=== PATIENT | female | born 1950 | race Two or more races ===

== ENCOUNTER 2019-10-19 16:09 | Emergency (ER) | payer BC, OTHER ==
[~2019-10-19] VITALS: Ht 152.4 cm; Wt 54.4 kg
[2019-10-19 16:12] VITALS: BP_SYST 125
--- NOTE | 2019-10-19 16:20 | NUR ---
Patient to ER bed 6 to gown for evaluation. Side rails up. Report given to Elizabeth RUBIO.
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
--- NOTE | 2019-10-19 16:30 | NUR ---
ER Dr. Flores at bedside examining patient.
[2019-10-19] MEDS ORDERED: HYDROcodone/ACETAMIN 7.5-325 MG TAB PO ONE (16:45)
--- NOTE | 2019-10-19 17:10 | NUR ---
XRAYS COMPLETE, AWAITING RESULTS.
--- NOTE | 2019-10-19 17:43 | NUR ---
REPORT TO JACOB RUBIO.
--- NOTE | 2019-10-19 18:10 | NUR ---
CALM, ALERT, RESP UNLABORED, SKIN WARM AND DRY. C-COLLOR INTACT, COMMUNICATES CLEARLY IN FULL COMPLETE SENTENCES.
--- NOTE | 2019-10-19 18:31 | NUR ---
UP AMBULATING TO BATHROOM. TOLERATING AMBULATION. PLACED BACK IN BED
--- NOTE | 2019-10-19 19:26 | NUR ---
Patient given written and verbal discharge instructions and verbalizes understanding. ER MD discussed with patient the results and treatment provided. Patient in stable condition. ID arm band removed. Rx of MOTRIN given. Patient educated on pain management and to follow up with PMD. Pain Scale 4/10. Opportunity for questions provided and answered. Medication side effect fact sheet provided.
[2019-10-19 19:27] VITALS: BP_SYST 131
== END 2019-10-19 19:27 | disposition home or self-care (01) ==
LOC: SED 16:09
DX: S13.4XXA Sprain of ligaments of cervical spine, initial encounter (principal); S50.12XA Contusion of left forearm, initial encounter; S80.02XA Contusion of left knee, initial encounter; E11.9 Type 2 diabetes mellitus without complications; V49.9XXA Car occupant (driver) (passenger) injured in unspecified traffic accident, initial encounter; Y93.89 Activity, other specified; Y92.411 Interstate highway as the place of occurrence of the external cause; Y99.8 Other external cause status
CPT/HCPCS: 72125-TC; 73090; 73560-TC; 99284